=== PATIENT | female | born 1945 | race Caucasian/White ===

== ENCOUNTER 2022-06-03 00:02 | Observation (INO) ==
[2022-06-03] MEDS ORDERED: Acetaminophen 325 MG TABLET PO PRN (03:16)
[2022-06-03] MEDS ORDERED: *HR* HYDROcodone/Acet 5/325 mg TABLET PO PRN (03:16)
[2022-06-03] MEDS ORDERED: Naloxone 0.4 MG/ML INJ IVP PRN (03:16)
[2022-06-03] MEDS: 0.9 % Sodium Chloride 1,000 ML IVC SCH ×2 (04:02→19:02)
[2022-06-03 05:25] LABS: Calcium 8.1 mg/dL (8.6-10.3); Chol/HDL Ratio 2.2 (0-4.9); Magnesium 1.8 mg/dL (1.6-2.6); Phosphorous 1.9 mg/dL (2.7-4.5); Potassium 3.8 mEq/L (3.5-5.1)
[2022-06-03 05:32] LABS: INR 1.3; Prothrombin Time 14.5 Seconds (9.4-12.1)
[2022-06-03 05:33] LABS: Activated Partial Thrombo Time 28.8 Seconds (26.0-36.0)
[2022-06-03 05:37] LABS: Basophils % 0.4 %; Eosinophils % 0.4 %; Immature Granulocytes % 0.4 % (0-4); Mean Platelet Volume 9.4 fL (9.4-12.4)
[2022-06-03 05:39] LABS: Hematocrit 37.8 % (35.3-44.9); Hemoglobin 12.3 g/dL (11.5-15.4); Immature Platelets 1.2 % (1.1-6.1); Lymphocytes # 0.8 K/mcL (0.6-4.6); Lymphocytes % 10.7 %; Mean Corpuscular HGB Conc 32.5 g/dL (31.6-35.5); Mean Corpuscular Hemoglobin 29.9 pg (28.0-33.3); Mean Corpuscular Volume 91.7 fL (83.0-100.0); Monocytes % 8.4 %; Neutrophils # 6.1 K/mcL (1.6-8.9); Platelet Count 207 K/mcL (140-400); Red Blood Count 4.12 M/mcL (3.82-4.97); Red Cell Distribution Width 13.1 % (11.5-14.5); Segmented Neutrophils % 79.7 %; White Blood Count 7.7 K/mcL (4.3-11.1)
[2022-06-03 06:04] LABS: Monocytes # 0.7 K/mcL (0.0-1.3); Platelet Estimate Normal (Normal)
[2022-06-03] MEDS: Ampicillin/Sulbactam 3,000 MG in 0.9 % Sodium Chloride Mini Bag 100 ML IVPB SCH ×2 (06:07→19:38)
[2022-06-03] MEDS: Ondansetron 4 MG/2 ML VIAL IVP PRN ×2 (07:50→19:47)
[2022-06-03] MEDS ORDERED: Perflutren Lipid Microsphere 1.3 ML in 0.9 % Sodium Chloride 8.7 ML IVP PRN (08:14)
[2022-06-03] MEDS: Lactobacillus 1 EACH CAP.SPRINK PO SCH ×2 (09:02→23:44)
[2022-06-03] MEDS: Calcium Gluconate 1gm/50mL 1 GM/50 ML BAG IVPB SCH ×2 (09:02→10:08)
[2022-06-03] MEDS ORDERED: Prochlorperazine 10 MG/2 ML VIAL IVP PRN (11:08)
[2022-06-03] MEDS: *HR* Heparin 5,000 UNIT/ML VIAL SQ SCH ×2 (15:41→23:45)
[2022-06-03] MEDS ORDERED: *HR* LORazepam 0.5 MG TABLET PO PRN (16:52)
[2022-06-03 17:37] LABS: Adenovirus F 40/41 PCR Not detected (Not detect); Astrovirus PCR Not detected (Not detect); C.difficile Toxin A/B Gene PCR Not detected (Not detect); Campylobacter by PCR Not detected (Not detect); Cryptosporidium by PCR Not detected (Not detect); Cyclospora cayetanensis PCR Not detected (Not detect); Entamoeba histolytica PCR Not detected (Not detect); Enteroaggregative E.coli(EAEC) Not detected (Not detect); Enteropathogenic E.coli(EPEC) Not detected (Not detect); Enterotoxigenic E.coli (ETEC) Not detected (Not detect); Giardia lamblia PCR Not detected (Not detect); Norovirus GI/GII PCR Not detected (Not detect); Plesiomonas shigelloides PCR Not detected (Not detect); Rotavirus A PCR Not detected (Not detect); Salmonella PCR Not detected (Not detect); Sapovirus PCR Not detected (Not detect); Shig/EnteroinvasiveE coli EIEC Not detected (Not detect); Shigalike tox-prod E coli STEC Not detected (Not detect); Vibrio PCR Not detected (Not detect); Vibrio cholerae PCR Not detected (Not detect); Yersinia enterocolitica PCR Not detected (Not detect)
[2022-06-03] MEDS ORDERED: Acetaminophen IV 500 MG/50 ML BAG IVPB ONE (21:30)
[2022-06-03 22:13] LABS: Basophils % 0.4 %; Hematocrit 36.1 % (35.3-44.9); Hemoglobin 11.7 g/dL (11.5-15.4); Immature Granulocytes % 0.5 % (0-4); Lymphocytes # 0.9 K/mcL (0.6-4.6); Lymphocytes % 10.7 %; Mean Corpuscular HGB Conc 32.4 g/dL (31.6-35.5); Mean Corpuscular Hemoglobin 29.3 pg (28.0-33.3); Mean Corpuscular Volume 90.5 fL (83.0-100.0); Mean Platelet Volume 9.1 fL (9.4-12.4); Monocytes # 0.6 K/mcL (0.0-1.3); Neutrophils # 6.6 K/mcL (1.6-8.9); Platelet Count 163 K/mcL (140-400); Red Blood Count 3.99 M/mcL (3.82-4.97); Red Cell Distribution Width 13.1 % (11.5-14.5); Segmented Neutrophils % 81.4 %; White Blood Count 8.1 K/mcL (4.3-11.1)
[2022-06-03] MEDS: Gabapentin 100 MG CAPSULE PO SCH (23:44)
[2022-06-04 04:54] LABS: Basophils % 0.3 %; Eosinophils % 0.1 %; Hematocrit 36.4 % (35.3-44.9); Hemoglobin 11.7 g/dL (11.5-15.4); Immature Granulocytes % 0.4 % (0-4); Mean Corpuscular HGB Conc 32.1 g/dL (31.6-35.5); Mean Corpuscular Hemoglobin 29.8 pg (28.0-33.3); Mean Corpuscular Volume 92.6 fL (83.0-100.0); Mean Platelet Volume 9.1 fL (9.4-12.4); Monocytes # 0.5 K/mcL (0.0-1.3); Monocytes % 7.5 %; Neutrophils # 5.4 K/mcL (1.6-8.9); Platelet Count 159 K/mcL (140-400); Red Blood Count 3.93 M/mcL (3.82-4.97); Red Cell Distribution Width 13.1 % (11.5-14.5); Segmented Neutrophils % 77.7 %; White Blood Count 6.9 K/mcL (4.3-11.1)
[2022-06-04 05:19] LABS: Calcium 8.3 mg/dL (8.6-10.3)
[2022-06-04] MEDS: Ampicillin/Sulbactam 3,000 MG in 0.9 % Sodium Chloride Mini Bag 100 ML IVPB SCH ×3 (05:22→17:51)
[2022-06-04] MEDS: *HR* Heparin 5,000 UNIT/ML VIAL SQ SCH ×3 (05:23→20:24)
[2022-06-04] MEDS: Ondansetron 4 MG/2 ML VIAL IVP PRN (08:58)
[2022-06-04] MEDS: Aspirin Enteric Coated 81 MG Tablet PO SCH (08:58)
[2022-06-04] MEDS: Cholecalciferol (D-3) 1,000 UNIT (25MCG) TABLET PO SCH (08:58)
[2022-06-04] MEDS: Gabapentin 100 MG CAPSULE PO SCH ×2 (08:58→20:24)
[2022-06-04] MEDS: Metoprolol XL (24 HR) Succ 25 MG TAB.ER.24H PO SCH (08:58)
[2022-06-04] MEDS: Lactobacillus 1 EACH CAP.SPRINK PO SCH ×2 (11:33→20:24)
[2022-06-04] MEDS: Melatonin 3 MG TABLET PO PRN (23:52)
[2022-06-05] MEDS: *HR* Heparin 5,000 UNIT/ML VIAL SQ SCH ×3 (05:04→22:03)
[2022-06-05] MEDS: Ampicillin/Sulbactam 3,000 MG in 0.9 % Sodium Chloride Mini Bag 100 ML IVPB SCH ×4 (05:05→23:59)
[2022-06-05 05:26] LABS: Basophils % 0.4 %; Eosinophils # 0.2 K/mcL (0.0-0.6); Eosinophils % 4.8 %; Hematocrit 31.5 % (35.3-44.9); Hemoglobin 10.3 g/dL (11.5-15.4); Immature Granulocytes % 0.4 % (0-4); Lymphocytes # 1.1 K/mcL (0.6-4.6); Lymphocytes % 22.3 %; Mean Corpuscular HGB Conc 32.7 g/dL (31.6-35.5); Mean Corpuscular Hemoglobin 29.8 pg (28.0-33.3); Mean Platelet Volume 9.4 fL (9.4-12.4); Monocytes # 0.5 K/mcL (0.0-1.3); Monocytes % 10.7 %; Neutrophils # 3.1 K/mcL (1.6-8.9); Platelet Count 174 K/mcL (140-400); Red Blood Count 3.46 M/mcL (3.82-4.97); Red Cell Distribution Width 13.1 % (11.5-14.5); Segmented Neutrophils % 61.4 %
[2022-06-05 05:43] LABS: Calcium 7.8 mg/dL (8.6-10.3); Magnesium 1.9 mg/dL (1.6-2.6); Potassium 3.6 mEq/L (3.5-5.1)
[2022-06-05] MEDS: Gabapentin 100 MG CAPSULE PO SCH ×2 (09:13→22:03)
[2022-06-05] MEDS: Metoprolol XL (24 HR) Succ 25 MG TAB.ER.24H PO SCH (09:13)
[2022-06-05] MEDS: Cholecalciferol (D-3) 1,000 UNIT (25MCG) TABLET PO SCH (09:13)
[2022-06-05] MEDS: Aspirin Enteric Coated 81 MG Tablet PO SCH (09:13)
[2022-06-05] MEDS: Lactobacillus 1 EACH CAP.SPRINK PO SCH ×2 (09:13→22:03)
[2022-06-05] MEDS: 0.9 % Sodium Chloride 1,000 ML IVC SCH (18:00)
[2022-06-05] MEDS: Melatonin 3 MG TABLET PO PRN (22:10)
[2022-06-06] MEDS: 0.9 % Sodium Chloride 1,000 ML IVC SCH ×3 (03:00→16:11)
[2022-06-06 03:29] LABS: Basophils % 0.4 %; Eosinophils # 0.2 K/mcL (0.0-0.6); Eosinophils % 4.2 %; Hematocrit 31.8 % (35.3-44.9); Hemoglobin 9.9 g/dL (11.5-15.4); Immature Granulocytes % 0.2 % (0-4); Lymphocytes # 1.1 K/mcL (0.6-4.6); Lymphocytes % 19.9 %; Mean Corpuscular HGB Conc 31.1 g/dL (31.6-35.5); Mean Corpuscular Hemoglobin 28.7 pg (28.0-33.3); Mean Corpuscular Volume 92.2 fL (83.0-100.0); Mean Platelet Volume 9.8 fL (9.4-12.4); Monocytes # 0.5 K/mcL (0.0-1.3); Monocytes % 8.5 %; Neutrophils # 3.8 K/mcL (1.6-8.9); Platelet Count 188 K/mcL (140-400); Red Blood Count 3.45 M/mcL (3.82-4.97); Red Cell Distribution Width 13.2 % (11.5-14.5); Segmented Neutrophils % 66.8 %; White Blood Count 5.7 K/mcL (4.3-11.1)
[2022-06-06 03:47] LABS: BUN/Creatinine Ratio 10 (6-26); Blood Urea Nitrogen 10 mg/dL (8-23); Calcium 7.7 mg/dL (8.6-10.3); Carbon Dioxide 25 mEq/L (23-29); Chloride 110 mEq/L (98-107); Glucose 86 mg/dL (70-105); Osmolality,Calculated 290 (280-300); Potassium 3.6 mEq/L (3.5-5.1); Sodium 141 mEq/L (136-145); eGFR For African Americans > 60 (> 60); eGFR For Non-African Americans 53 (> 60)
[2022-06-06] MEDS: *HR* Heparin 5,000 UNIT/ML VIAL SQ SCH ×2 (06:25→12:19)
[2022-06-06] MEDS: Ampicillin/Sulbactam 3,000 MG in 0.9 % Sodium Chloride Mini Bag 100 ML IVPB SCH ×3 (06:25→17:22)
[2022-06-06] MEDS: Metoprolol XL (24 HR) Succ 25 MG TAB.ER.24H PO SCH (06:54)
[2022-06-06] MEDS ORDERED: *HR* FentaNYL (PF) 100 MCG/2 ML VIAL ONE ×2 (07:52→08:36)
[2022-06-06] MEDS ORDERED: Lidocaine -MPF 2% 5 ML VIAL ONE ×2 (07:52→07:53)
[2022-06-06] MEDS ORDERED: *HR* Propofol 200 MG/20 ML VIAL IVP ONE (07:52)
[2022-06-06] MEDS ORDERED: Iopamidol - 300 50 ML VIAL ONE (07:54)
[2022-06-06] MEDS ORDERED: Albuterol 2.5 MG/3 ML NEBULIZER IH PRN (08:03)
[2022-06-06] MEDS ORDERED: *HR* FentaNYL (PF) 100 MCG/2 ML VIAL IVP PRN (08:03)
[2022-06-06] MEDS ORDERED: Ondansetron 4 MG/2 ML VIAL ONE (08:26)
[2022-06-06] MEDS ORDERED: Hyoscyamine SL 0.125 MG TAB.SUBL SL PRN (10:35)
[2022-06-06] MEDS: Gabapentin 100 MG CAPSULE PO SCH (10:52)
[2022-06-06] MEDS: Lactobacillus 1 EACH CAP.SPRINK PO SCH (10:52)
[2022-06-06] MEDS: Cholecalciferol (D-3) 1,000 UNIT (25MCG) TABLET PO SCH (10:52)
[2022-06-06] MEDS: Aspirin Enteric Coated 81 MG Tablet PO SCH (10:52)
[2022-06-06 11:38] VITALS: TEMP 97.8; O2SAT 95
[2022-06-06 17:04] VITALS: BP 121/58; PULSE 69
== END 2022-06-06 20:15 | disposition home or self-care (01) ==
LOC: 3NENU → SUATTDRO 02:33
PROVIDERS: ADMIT Internal Medicine; ATTEND Hospitalist